=== PATIENT | female | born 1935 | race Caucasian/White ===

== ENCOUNTER 2017-11-10 19:53 | Inpatient (IN) | payer OTHER ==
[~2017-11-10] VITALS: Ht 152.4 cm; Wt 63.7 kg
[~2017-11-10 19:53] MED LIST: ASPIR 8181 M1 PO; ATIVAN0.5 MG PO; Aspirin Chewable PO; Atarax,Vistaril PO; Ativan PO; CALCIUM 500 +1 EACH PO; CEFTIN500 MG PO; CELEBREX200 MG PO; CLONIDINE HCL0.1 MG PO; COLACE100 MG PO; CRESTOR10 MG PO; DETROL LA4 MG PO; DIOVAN HCT 81 TABLET PO; Detrol LA PO; ELIQUIS5 MG PO; FLOMAX0.4 MG PO; FLONASE16 G1 BOTH NARES; HYDROCHLOROTH12.5 M3 PO; JANUVIA100 MG PO; LASIX20 MG PO; LEVOTHYROXINE50 MCG PO; LIPITOR20 MG PO; LISINOPRIL40 MG PO; LYRICA75 MG PO; Levothroid,Synthroid PO; MAXIMUM DAILY1 EAC1 PO; METOPROLOL SUCC50 MG PO; NEXIUM40 MG PO; OxyCODONE PO; PRINIVIL20 MG PO; PROTONIX40 MG PO; REFRESH TEARS15 ML BOTH EYES; SYNTHROID50 MCG PO; SYNTHROID75 MCG PO; THERAGRAN1 TABLET PO; TIROSINT50 MCG PO; TOLTERODINE TART4 MG PO; Toprol XL PO; ULTRAM50 MG PO; VITAMIN E400 UNIT PO; Vitamin-E PO; ZESTRIL,PRINIVI40 M1 PO
[2017-11-10 20:28] LABS: HEMOGLOBIN 11.9 G/DL (11.9-15.5); MCH 29.2 PG (29.0-34.0); PLATELET COUNT 293 K/uL (156-360); RBC DIS.WIDTH-CV 14.6 % (11.8-14.6); RBC DIS.WIDTH-SD 45.5 % (39-53); RED BLOOD COUNT 4.07 M/uL (3.80-5.20); WHITE BLOOD COUNT 4.6 K/uL (4.1-10.2)
[2017-11-10 20:36] LABS: CHLORIDE 96 mEq/L (99-109); POTASSIUM 4.2 mEq/L (3.7-5.4); SODIUM 126 mEq/L (136-147)
[2017-11-10 20:37] LABS: GLUCOSE 108 mg/dL (70-99)
[2017-11-10 20:41] LABS: CREATININE 0.8 mg/dL (0.6-1.3); GFR ESTIMATE (CALCULATED) > 59 mL/min/
[2017-11-10 20:42] LABS: UREA NITROGEN (BUN) 17 mg/dL (9-23)
[2017-11-11] VITALS (8 sets, daily range): BP systolic 95–138; BP diastolic 52–73
[2017-11-11 08:51] LABS: CHLORIDE 94 MEQ/L (99-109); CREATININE 0.9 MG/DL (0.6-1.3); GFR ESTIMATE (CALCULATED) > 59 mL/min/; GLUCOSE 91 mg/dL (70-99); POTASSIUM 4.4 MEQ/L (3.7-5.4); SODIUM 126 MEQ/L (136-147); UREA NITROGEN (BUN) 15 mg/dL (9-23)
[2017-11-11 17:10] LABS: C DIFF TOXIN NEGATIVE (NEGATIVE)
[2017-11-12 02:50] VITALS: BP 127/56
[2017-11-12 06:05] LABS: BASOPHIL (%) 0.9 % (0-1); BASOPHIL COUNT 0.1 K/uL (0-0.1); EOSINOPHIL (%) 2.9 % (0-5); EOSINOPHIL COUNT 0.2 K/uL (0-0.3); HEMATOCRIT 35.1 % (36.0-46.0); HEMOGLOBIN 11.6 G/DL (11.9-15.5); IMMATURE GRANULOCYTE (%) 0.4 % (0.0-0.7); LYMPHOCYTE (%) 5.1 % (15-42); LYMPHOCYTE COUNT 0.3 K/uL (1.0-2.8); MCH 28.8 PG (29.0-34.0); MCV 87.1 FL (83-99); MONOCYTE (%) 13.1 % (3-12); MONOCYTE COUNT 0.7 K/uL (0-0.8); NEUTROPHIL (%) 77.6 % (45-76); NEUTROPHIL COUNT 4.2 K/uL (1.8-6.4); PLATELET COUNT 267 K/uL (156-360); RBC DIS.WIDTH-CV 14.7 % (11.8-14.6); RBC DIS.WIDTH-SD 46.8 % (39-53); RED BLOOD COUNT 4.03 M/uL (3.80-5.20); WHITE BLOOD COUNT 5.4 K/uL (4.1-10.2)
[2017-11-12 06:40] LABS: CHLORIDE 95 MEQ/L (99-109); GFR ESTIMATE (CALCULATED) 57 mL/min/; GLUCOSE 78 mg/dL (70-99); POTASSIUM 4.4 MEQ/L (3.7-5.4); SODIUM 126 MEQ/L (136-147); UREA NITROGEN (BUN) 21 mg/dL (9-23)
[2017-11-12 07:30] VITALS: BP 82/43
[2017-11-12 11:30] VITALS: BP 83/50
[2017-11-12 15:30] VITALS: BP 96/51
[2017-11-12 19:30] VITALS: BP 99/52
[2017-11-12 23:40] VITALS: BP 102/59
[2017-11-13 03:20] VITALS: BP 107/56
[2017-11-13 06:56] LABS: BASOPHIL (%) 1.1 % (0-1); BASOPHIL COUNT 0.1 K/uL (0-0.1); EOSINOPHIL (%) 7.4 % (0-5); EOSINOPHIL COUNT 0.4 K/uL (0-0.3); HEMATOCRIT 38.2 % (36.0-46.0); HEMOGLOBIN 12.2 G/DL (11.9-15.5); IMMATURE GRANULOCYTE (%) 0.6 % (0.0-0.7); LYMPHOCYTE (%) 7.9 % (15-42); LYMPHOCYTE COUNT 0.4 K/uL (1.0-2.8); MCH 28.3 PG (29.0-34.0); MCHC 31.9 G/DL (30.0-36.0); MCV 88.6 FL (83-99); MONOCYTE (%) 12.4 % (3-12); MONOCYTE COUNT 0.7 K/uL (0-0.8); NEUTROPHIL (%) 70.6 % (45-76); NEUTROPHIL COUNT 3.8 K/uL (1.8-6.4); PLATELET COUNT 258 K/uL (156-360); RBC DIS.WIDTH-CV 14.7 % (11.8-14.6); RED BLOOD COUNT 4.31 M/uL (3.80-5.20); WHITE BLOOD COUNT 5.4 K/uL (4.1-10.2)
[2017-11-13 07:21] VITALS: BP 141/60
[2017-11-13 07:21] LABS: CHLORIDE 94 MEQ/L (99-109); CREATININE 1.1 MG/DL (0.6-1.3); GFR ESTIMATE (CALCULATED) 51 mL/min/; GLUCOSE 88 mg/dL (70-99); POTASSIUM 4.7 MEQ/L (3.7-5.4); SODIUM 124 MEQ/L (136-147); UREA NITROGEN (BUN) 26 mg/dL (9-23)
[2017-11-13 11:00] VITALS: BP 88/52; BP 93/50
[2017-11-13 11:36] LABS: URIC ACID 7.8 mg/dL (3.1-9.2)
[2017-11-13 14:10] LABS: UR CREATININE CONCENTRATION 47.7 MG/DL
[2017-11-13 15:17] VITALS: BP 95/55
[2017-11-13] MEDS ORDERED: CELEBREX200 MG PO (15:31)
[2017-11-13 19:39] VITALS: BP 105/51
[2017-11-13 20:51] LABS: CHLORIDE 94 MEQ/L (99-109); SODIUM 127 MEQ/L (136-147)
[2017-11-13 20:57] LABS: CREATININE 1.1 MG/DL (0.6-1.3); GFR ESTIMATE (CALCULATED) 51 mL/min/; GLUCOSE 95 mg/dL (70-99); UREA NITROGEN (BUN) 24 mg/dL (9-23)
[2017-11-14 00:22] VITALS: BP 128/63
[2017-11-14 03:46] VITALS: BP 110/57
[2017-11-14 06:41] LABS: CHLORIDE 96 MEQ/L (99-109); CREATININE 1.1 MG/DL (0.6-1.3); GFR ESTIMATE (CALCULATED) 51 mL/min/; GLUCOSE 98 mg/dL (70-99); POTASSIUM 4.2 MEQ/L (3.7-5.4); UREA NITROGEN (BUN) 24 mg/dL (9-23)
[2017-11-14 06:42] LABS: SODIUM 135 MEQ/L (136-147)
[2017-11-14 07:35] VITALS: BP 132/63
[2017-11-14 11:52] VITALS: BP 124/59
[2017-11-14 15:18] VITALS: BP 126/60
[2017-11-15 00:27] VITALS: BP 124/57
[2017-11-15 06:34] LABS: HEMATOCRIT 38.6 % (36.0-46.0); HEMOGLOBIN 12.3 G/DL (11.9-15.5); MCHC 31.9 G/DL (30.0-36.0); MCV 87.7 FL (83-99); PLATELET COUNT 266 K/uL (156-360); RBC DIS.WIDTH-CV 14.8 % (11.8-14.6); RBC DIS.WIDTH-SD 47.6 % (39-53); WHITE BLOOD COUNT 5.1 K/uL (4.1-10.2)
[2017-11-15 07:14] LABS: CHLORIDE 96 MEQ/L (99-109); GFR ESTIMATE (CALCULATED) 57 mL/min/; GLUCOSE 94 mg/dL (70-99); POTASSIUM 3.9 MEQ/L (3.7-5.4); SODIUM 135 MEQ/L (136-147); UREA NITROGEN (BUN) 22 mg/dL (9-23)
[2017-11-15 07:20] VITALS: BP 145/65
[2017-11-15 07:26] LABS: BASOPHIL (%) 1.6 % (0-1); BASOPHIL COUNT 0.1 K/uL (0-0.1); EOSINOPHIL (%) 11.9 % (0-5); EOSINOPHIL COUNT 0.6 K/uL (0-0.3); IMMATURE GRANULOCYTE (%) 0.8 % (0.0-0.7); LYMPHOCYTE (%) 15.6 % (15-42); LYMPHOCYTE COUNT 0.8 K/uL (1.0-2.8); MONOCYTE (%) 16.8 % (3-12); MONOCYTE COUNT 0.9 K/uL (0-0.8); NEUTROPHIL (%) 53.3 % (45-76); NEUTROPHIL COUNT 2.7 K/uL (1.8-6.4)
[2017-11-15 15:40] VITALS: BP 150/65
[2017-11-15 23:46] VITALS: BP 161/67
[2017-11-16 06:24] VITALS: BP 140/65
[2017-11-16 06:27] LABS: CHLORIDE 96 MEQ/L (99-109); CREATININE 0.9 MG/DL (0.6-1.3); GFR ESTIMATE (CALCULATED) > 59 mL/min/; GLUCOSE 113 mg/dL (70-99); POTASSIUM 4.6 MEQ/L (3.7-5.4); SODIUM 136 MEQ/L (136-147); UREA NITROGEN (BUN) 19 mg/dL (9-23)
[2017-11-16 15:00] VITALS: BP 135/64
[2017-11-17] VITALS: BP 134/64
[2017-11-17 07:17] VITALS: BP 147/70
[2017-11-17 07:20] LABS: BASOPHIL (%) 1.4 % (0-1); BASOPHIL COUNT 0.1 K/uL (0-0.1); EOSINOPHIL (%) 6.3 % (0-5); EOSINOPHIL COUNT 0.3 K/uL (0-0.3); HEMATOCRIT 40.4 % (36.0-46.0); LYMPHOCYTE (%) 19.1 % (15-42); LYMPHOCYTE COUNT 0.9 K/uL (1.0-2.8); MCHC 32.2 G/DL (30.0-36.0); MCV 86.9 FL (83-99); MONOCYTE (%) 12.6 % (3-12); MONOCYTE COUNT 0.6 K/uL (0-0.8); NEUTROPHIL (%) 59.6 % (45-76); NEUTROPHIL COUNT 2.9 K/uL (1.8-6.4); PLATELET COUNT 271 K/uL (156-360); RBC DIS.WIDTH-CV 14.8 % (11.8-14.6); RBC DIS.WIDTH-SD 47.2 % (39-53); RED BLOOD COUNT 4.65 M/uL (3.80-5.20); WHITE BLOOD COUNT 4.9 K/uL (4.1-10.2)
[2017-11-17 07:43] LABS: CHLORIDE 97 MEQ/L (99-109); CREATININE 0.8 MG/DL (0.6-1.3); GFR ESTIMATE (CALCULATED) > 59 mL/min/; GLUCOSE 100 mg/dL (70-99); POTASSIUM 4.3 MEQ/L (3.7-5.4); SODIUM 133 MEQ/L (136-147); UREA NITROGEN (BUN) 17 mg/dL (9-23)
[2017-11-17 16:02] VITALS: BP 130/65
[2017-11-17 23:10] VITALS: BP 166/79
[2017-11-18 07:20] LABS: CHLORIDE 96 MEQ/L (99-109); CREATININE 0.9 MG/DL (0.6-1.3); GFR ESTIMATE (CALCULATED) > 59 mL/min/; GLUCOSE 120 mg/dL (70-99); POTASSIUM 4.9 MEQ/L (3.7-5.4); SODIUM 135 MEQ/L (136-147); UREA NITROGEN (BUN) 19 mg/dL (9-23)
[2017-11-18 07:40] VITALS: BP 118/71
[2017-11-18] MEDS ORDERED: DOXYCYCLINE HY100 M3 PO (12:11)
[2017-11-18] MEDS ORDERED: METOPROLOL SUCC25 MG PO (12:11)
[2017-11-18] MEDS ORDERED: LISINOPRIL2.5 MG PO (12:11)
== END 2017-11-18 16:11 | disposition home health service (06) | DRG 194 ==
LOC: EME → EDBD 19:53 → EDOF 21:50 → 2EASTP 21:50 → 2EAST 21:50 → ENRESERV 21:59 → 2EASTP 11-11 00:40 → ENRESERV 11-11 13:45 → 2EAST 11-11 13:47
PROVIDERS: Family Medicine; Internal Medicine; Internal Medicine Pulmonary Disease
DX: J18.9 Pneumonia, unspecified organism (principal); I50.30 Unspecified diastolic (congestive) heart failure; E87.1 Hypo-osmolality and hyponatremia; E87.0 Hyperosmolality and hypernatremia; I27.20 Pulmonary hypertension, unspecified; J90 Pleural effusion, not elsewhere classified; I11.0 Hypertensive heart disease with heart failure; I48.2 Chronic atrial fibrillation; D64.9 Anemia, unspecified; J43.9 Emphysema, unspecified; R19.7 Diarrhea, unspecified; R09.02 Hypoxemia; E11.9 Type 2 diabetes mellitus without complications; E03.9 Hypothyroidism, unspecified; M19.90 Unspecified osteoarthritis, unspecified site; E78.5 Hyperlipidemia, unspecified; K22.70 Barrett's esophagus without dysplasia; I49.5 Sick sinus syndrome; K21.9 Gastro-esophageal reflux disease without esophagitis; Z95.0 Presence of cardiac pacemaker; Z90.49 Acquired absence of other specified parts of digestive tract; Z85.3 Personal history of malignant neoplasm of breast; Z90.710 Acquired absence of both cervix and uterus; Z96.659 Presence of unspecified artificial knee joint; Z79.899 Other long term (current) drug therapy; J45.909 Unspecified asthma, uncomplicated; T50.1X5A Adverse effect of loop [high-ceiling] diuretics, initial encounter
CPT/HCPCS: 70450; 71020; 71250; 80048; 80048 91; 82570; 83630; 83880; 83930; 83935; 84300; 84540; 84550; 85025; 85027; 87449; 87493; 87502; 87506; 93005; 94010; 94640 76; 94760; 94799; 97530 GP; 99202; 99281; 99284; J0456; J0696; J1940; J2405